=== PATIENT | female | born 1985 | race Caucasian/White ===

== ENCOUNTER → 2017-06-01 | Outpatient (CLI) | payer BC ==
[~2017-06-01] MED LIST: MTR600X PO; PRENTAB26 PO
[2017-06-01 15:49] LABS: URINE APPEARANCE CLEAR (CLEAR); URINE BILIRUBIN NEG (NEG); URINE COLOR DK YELLOW; URINE NITRITE NEG (NEG); URINE SPECIFIC GRAVITY 1.021 (1.000-1.030); UROBILINOGEN NEG (NEG)
[2017-06-01 15:53] LABS: MANUAL MICROSCOPIC REQUIRED? NO; REVIEW REQ? NO
[2017-06-01 17:00] LABS: BASO % 0.2 %; BASO ABS # 0.02 K/uL (0-0.2); COMPLETE YES; EOS % 0.5 %; HEMATOCRIT 38.5 % (37-47); IG% 0.5 %; LYMPH % 20.4 %; LYMPH ABS # 2.05 K/uL (1.2-3.4); MEAN CELL VOLUME 89.5 fL (80-100); MEAN CORPUSCULAR HEMOGLOBIN 29.1 pg (25-34); MEAN CORPUSCULAR HGB CONC 32.5 g/dl (32-36); MEAN PLATELET VOLUME 10.7 fL (7.4-10.4); MONO % 4.5 %; NEUT % 73.9 %; PLATELET COUNT 226 K/uL (130-400); WHITE BLOOD COUNT 10.04 K/uL (4.8-10.8)
[2017-06-04 13:34] LABS: CHLAMYDIA TRACH RNA*** NOT DETECTED (NOT DETECTED); GC (NEIS GONORRHOEAE)RNA** NOT DETECTED (NOT DETECTED)
== END | disposition home or self-care (01) ==
LOC: C.LAB1850 15:15
PROVIDERS: ATTEND Obstetrics & Gynecology
DX: Z34.81 Encounter for supervision of other normal pregnancy, first trimester (principal); Z3A.00 Weeks of gestation of pregnancy not specified

== ENCOUNTER → 2017-07-24 | Outpatient (CLI) | payer BC ==
[2017-07-24 18:46] LABS: GTGD 50 Grams
== END | disposition home or self-care (01) ==
LOC: C.LAB1850 12:43
PROVIDERS: ATTEND Obstetrics & Gynecology
DX: Z34.82 Encounter for supervision of other normal pregnancy, second trimester (principal); Z3A.00 Weeks of gestation of pregnancy not specified

== ENCOUNTER → 2017-10-23 | Outpatient (CLI) | payer BC | END | disposition home or self-care (01) | LOC: C.LABSPEC 13:46 | PROVIDERS: ATTEND Obstetrics & Gynecology | DX: Z34.83 Encounter for supervision of other normal pregnancy, third trimester (principal) ==

== ENCOUNTER → 2017-11-30 | Outpatient (CLI) | payer BC ==
[2017-11-30 17:46] LABS: HEMATOCRIT 33.1 % (37-47); HEMOGLOBIN 11.2 g/dL (12.0-16.0)
== END | disposition home or self-care (01) ==
LOC: C.LAB1850 16:46
PROVIDERS: ATTEND Obstetrics & Gynecology
DX: Z34.83 Encounter for supervision of other normal pregnancy, third trimester (principal)

== ENCOUNTER 2017-12-13 10:16 | Outpatient (CLI) | payer BC ==
[2017-12-13] MEDS ORDERED: TERBUTALINE SULFATE 1 MG/ML VIAL ONE (11:49)
[2017-12-13] MEDS ORDERED: TERBUTALINE SULFATE 1 MG/ML VIAL SQ PRN (12:00)
== END 2017-12-13 14:00 | disposition home or self-care (01) ==
LOC: C.OPB 10:16 → C.LD 10:17 → C.OPB 14:00
PROVIDERS: ATTEND Obstetrics & Gynecology
DX: O32.1XX0 Maternal care for breech presentation, not applicable or unspecified (principal); Z3A.36 36 weeks gestation of pregnancy

== ENCOUNTER → 2017-12-13 | Outpatient (CLI) | payer BC | END | disposition home or self-care (01) | LOC: C.LABSPEC 10:48 | PROVIDERS: ATTEND Obstetrics & Gynecology | DX: Z34.83 Encounter for supervision of other normal pregnancy, third trimester (principal) ==

== ENCOUNTER 2018-01-11 07:43 | Inpatient (IN) | payer BC ==
[~2018-01-11] VITALS: Ht 165.1 cm; Wt 132.3 kg
[2018-01-11] MEDS ORDERED: LACTATED RINGER'S 1000ML 1,000 ML IV PRN (08:26)
[2018-01-11] MEDS ORDERED: LACTATED RINGER'S 1000ML 500 ML IV PRN ×2 (08:26→11:56)
[2018-01-11] MEDS ORDERED: OXYTOCIN 30 UNITS/500ML NSS IV PRN ×2 (08:30→15:45)
[2018-01-11 08:54] LABS: HEMATOCRIT 34.8 % (37-47); HEMOGLOBIN 11.8 g/dL (12.0-16.0); MEAN CELL VOLUME 86.1 fL (80-100); MEAN CORPUSCULAR HEMOGLOBIN 29.2 pg (25-34); MEAN CORPUSCULAR HGB CONC 33.9 g/dl (32-36); MEAN PLATELET VOLUME 10.1 fL (7.4-10.4); PLATELET COUNT 177 K/uL (130-400); RED CELL DISTRIBUTION WIDTH CV 15.1 % (11.5-14.5); RED CELL DISTRIBUTION WIDTH SD 47.7 fL (36.4-46.3); WHITE BLOOD COUNT 9.33 K/uL (4.8-10.8)
[2018-01-11 09:28] VITALS: Ht 165.1 cm; Wt 132.3 kg
[2018-01-11] MEDS ORDERED: FAMO20TA11 PO (09:28)
[2018-01-11] MEDS: LACTATED RINGER'S 1000ML 1,000 ML IV SCH ×2 (09:44→12:36)
[2018-01-11] MEDS ORDERED: BUPIVACAINE 0.25% 30 ML VIAL ONE (11:17)
[2018-01-11] MEDS ORDERED: EpHEDrine SULFATE INJ 50 MG/ML AMP ONE (11:17)
[2018-01-11] MEDS ORDERED: FENTANYL CITRATE INJ 50 MCG/1 ML 2 ML VIAL ONE (11:17)
[2018-01-11] MEDS ORDERED: FENTANYL 2MCG/ML ROPIV 1.25MG/ML 100ML BAG ONE (11:18)
[2018-01-11] MEDS ORDERED: NALOXONE HCL INJ 1 MG in SODIUM CHLORIDE 0.9% 1000ML 1,000 ML IV PRN (11:56)
[2018-01-11] MEDS ORDERED: ONDANSETRON INJ 2 MG/ML 2 ML VIAL IV PRN (12:00)
[2018-01-11] MEDS ORDERED: DiphenhydrAMINE HCL 50 MG/ML VIAL IV PRN (12:00)
[2018-01-11] MEDS ORDERED: NALBUPHINE HCL INJ 10 MG/ML AMP IV PRN (12:00)
[2018-01-11] MEDS ORDERED: NALOXONE HCL INJ 0.4 MG/1 ML VIAL/CARP IV PRN (12:00)
[2018-01-11] MEDS ORDERED: FENTANYL 2MCG/ML ROPIV 1.25MG/ML 100ML BAG EPI PRN (12:00)
[2018-01-11] MEDS ORDERED: EpHEDrine SULFATE INJ 50 MG/ML AMP IV PRN (12:00)
[2018-01-11] MEDS ORDERED: ACETAMINOPHEN/CODEINE 300/30MG TAB PO PRN ×2 (15:45)
[2018-01-11] MEDS ORDERED: ACETAMINOPHEN 325 MG TAB PO PRN (15:45)
[2018-01-11] MEDS ORDERED: BENZOCAINE 20% AER SPR 82.5 GM CAN EXT PRN (15:45)
[2018-01-11] MEDS ORDERED: LANOLIN OINT EXT PRN (15:45)
[2018-01-11] MEDS ORDERED: HYDROCORTISONE ACETATE 25 MG SUPP PR PRN (15:45)
[2018-01-11] MEDS ORDERED: DIPHTHERIA/TETANUS/PERTUSSIS 0.5 ML SYR/VIAL IM. ONE (15:45)
[2018-01-11] MEDS ORDERED: SUPERCREAM 0.870 % 15GM JAR EXT PRN (15:45)
--- NOTE | 2018-01-11 15:54 | DELIVERY SUMMARY ---
DATE OF OPERATION: 01/11/2018 DATE OF DELIVERY: 01/11/2018 FINDINGS: Viable female infant with Apgars of 8 and 9. Baby delivered spontaneously over an intact perineum. Cord gases, cord blood samples obtained. Placenta delivered spontaneously. Estimated blood loss 300 cc. LABOR NOTE: The patient is a 32-year-old 2 para 1 with an EDC of 01/10/2018 at 40+ gestational age who presents to labor and delivery with spontaneous rupture of membranes. The patient states her membranes ruptured approximately 0100 hours on day of admission. The patient states that she has been having mild irregular contractions. The patient has had a benign course. She had successful external cephalic version at 36 weeks gestational age on labor and delivery. Her blood type is O negative, antibody negative, she received RhoGAM on 11/30/2017. She is hepatitic B negative. She declined antigenetic screening and she had a normal 1-hour Glucola at 28 weeks with a negative third trimester beta strip culture. Upon admission the patient was grossly ruptured, 3-4 cm dilated, 50% effaced and -2 station. Tracing was category 1. Because of the ruptured membranes at term the patient was started on Pitocin per induction protocol. The patient progressed into a regular labor pattern. Anesthesia was consulted and an epidural was placed. The patient progressed to full dilatation but had no sensation to push. Her epidural rate was declined to 5 mL per hour and half an hour later she began her second stage. She pushed for approximately 10 minutes delivering a viable female . Cord was clamped and cut. Cord gases and cord blood samples obtained. Placenta delivered spontaneously. Inspection of the perineum showed an intact perineum. Estimated blood loss was 300 cc. Sponge and needle count was correct. I attest to the content of the Intraoperative Record and any orders documented therein. Any exception s are noted below.
--- NOTE | 2018-01-11 16:32 | Anesthesia Procedure Note ---
Anesthesia Epidural Removal Nt Date & Time January 11, 2018 at 16:31 Vital Signs Pain Intensity: 4.0 Notes Mental Status: alert / awake / arousable, participated in evaluation Nausea / Vomiting: adequately controlled Pain: adequately controlled Airway Patency, RR, SpO2: stable & adequate BP & HR: stable & adequate Hydration State: stable & adequate Neuraxial Anesthesia: was administered, sensory block is resolving Anesthetic Complications: no major complications apparent, pt satisfied with anesthetic care Epidural: removed without complications, with tip intact
[2018-01-11] MEDS: IBUPROFEN 600 MG TAB PO PRN ×2 (18:14→23:16)
[2018-01-11 19:25] VITALS: BP 133/85; PULSE 88; TEMP 36.9
[2018-01-11] MEDS: DOCUSATE SODIUM 100 MG CAP PO SCH (20:15)
[2018-01-11] MEDS: FAMOTIDINE 20 MG TAB PO SCH (20:15)
[2018-01-11 23:10] VITALS: BP 121/78; PULSE 87; TEMP 37
[2018-01-12] MEDS: IBUPROFEN 600 MG TAB PO PRN ×2 (03:39→08:55)
[2018-01-12 03:45] VITALS: BP 115/80; PULSE 78; TEMP 36.8
--- NOTE | 2018-01-12 06:32 | Progress Note ---
Subjective January 12, 2018. Subjective conversation w/ patient Ambulation: ambulating normally Voiding: no voiding problems Diet Tolerance: Regular Diet Lochia: Moderate Feeding Type: Breast Feeding Pain: 4/10 cramping abdominal pain, improved with analgesia Review of Systems Constitutional: No fever, No chills Respiratory: No shortness of breath Cardiac: No chest pain Abdomen: No nausea, No vomiting Objective Vital Signs Date Time Temp Pulse Resp B/P (MAP) Pulse Ox O2 Delivery O2 Flow Rate FiO2 01/12/18 03:45 36.8 78 18 115/80 (92) Room Air 01/11/18 23:10 Room Air 01/11/18 23:10 37.0 87 20 121/78 (92) Room Air 01/11/18 19:25 Room Air 01/11/18 19:25 36.9 88 20 133/85 (101) Room Air Physical Exam General Appearance: WELL-APPEARING, WD/WN, NO APPARENT DISTRESS Respiratory/Chest: lungs clear, normal breath sounds Cardiovascular: regular rate, rhythm Abdomen: soft Fundus: Firm, Non-Tender, Relation to Umbilicus (at u) Extremities: no calf tenderness, + pedal edema Laboratory Results Last 24 Hours Test 01/11/18 08:41 01/12/18 04:44 White Blood Count 9.33 K/uL Red Blood Count 4.04 M/uL Hemoglobin 11.8 g/dL Hematocrit 34.8 % Mean Corpuscular Volume 86.1 fL Mean Corpuscular Hemoglobin 29.2 pg Mean Corpuscular Hemoglobin Concent 33.9 g/dl RDW Standard Deviation 47.7 fL RDW Coefficient of Variation 15.1 % Platelet Count 177 K/uL Mean Platelet Volume 10.1 fL Assessment and Plan Post- Day#: 1 Continue Routine Care: 32F s/p NVD day 1 - O-, Rubella Immune, GBS -ve - baby is O+, will require rhogam before d/c - pt doing very well clinically - Vital signs reviewed and WNL - Encourage ambulation, monitor and control pain with Motrin PRN - Encourage breast feeding - Pt ready for d/c today, provided baby is also d/jefry today - will be counselled on discharge instructions Resident Physician Supervision Note: I interviewed and examined the patient. Discussed with Dr. Lau and agree with findings and plan as documented in the note. Any exceptions or clarifications are listed here: Patient desires d/c after 24 hours. Instructions reviewed Documented By: Andrez Glover Resident Tracking Resident Involvement: Resident Care Provided Care Provided: OB Delivery
--- NOTE | 2018-01-12 06:44 | Discharge Instructions ---
Discharge Instructions Date of Service January 12, 2018. Admission Reason for Admission: Labor Check Discharge Discharge Diagnosis / Problem: Vaginal Delivery Discharge Goals Goal(s): Routine recovery after delivery Medications Continue Dispensed Medications: supercream, dermaplast, tucks, lansinoh Activity Recommendations Activity Limitations: per Instructions/Follow-up section . Instructions / Follow-Up Instructions / Follow-Up ACTIVITY RECOMMENDATIONS: * Gradual return to full activity over the next 2-3 weeks. * No lifting - nothing heavier than baby over the next 2-3 weeks. * Do not engage in vigorous exercise, sexual activity or sports until cleared by your physician. * Do not drive or operate any motorized equipment until cleared by your physician. * You may shower/bathe daily. MEDICATIONS: For discomfort or pain, you may use Acetaminophen (Tylenol), Ibuprofen (Advil), or Naproxen (Aleve) following the package directions. For constipation you may use Colace following the package directions. BREAST CARE: If you are not breast feeding: * Wear a supportive bra 24 hours a day for one to two weeks. * Avoid stimulating your breasts and nipples as much as possible during the first few weeks after delivery. * When taking a shower, have the warm water hit your back, not breasts. * When your breasts feel full, apply ice packs. Usually three to four times a day helps ease the discomfort. * Take a mild pain medication (Tylenol / Motrin) when you are uncomfortable. If breast feeding: * Use breast milk to lubricate nipples. Lansinoh cream may be used for sore nipples. You do not need to remove cream prior to breast feeding. If using a different brand of cream, check the label for directions regarding removal of cream prior to nursing. * Wear a supportive bra. * If having problems with breasts or breast feeding, call a applications consultant or your health care provider. EPISIOTOMY CARE: After delivery, if you have an episiotomy (stitches), the following steps will ease discomfort and aid healing. * For the first 24 hours after delivery, place ice packs next to your episiotomy to help reduce swelling. * After the first 24 hour-period, sitz baths, either portable or in the tub, are suggested. A shower with a shower arm sprayed over the episiotomy may be comforting. * Tori care should be done after each voiding and bowel movement. Squirt warm water from a plastic bottle over the perineum (region of the body between the anus and urinary opening) and pat dry. * Use Dermoplast to ease discomfort. Shake container. Kinross directly over the episiotomy. Place a Tucks on a clean sanitary pad next to your episiotomy. SPECIAL CARE INSTRUCTIONS: When you are discharged from the hospital, it is important for you to follow the instructions listed below: * During the first week at home, you should be able to care for yourself and your baby. In addition, the usual light household activities are encouraged. * Limit your activities to the way you feel. Do not try to clean the house or move furniture. Be sensible. * If you actively engage in sports and have done so up until the time of your delivery, you may resume these activities as soon as you feel able. This may take up to one month or even longer. Use good judgment. * Continue to take your vitamins for at least six weeks after the of your baby. * Your diet need not be limited unless you were on a special diet before your delivery. Breast-feeding mothers need around 2500 calories per day and at least 64-80 ounces of fluid per day (8 to 10 glasses). * You should eat foods from the four major food groups. Crash diets or fad diets are to be avoided. Eating lean meats, fresh fruits and vegetables, low-fat dairy products, high fiber foods and a regular exercise program, will help you get back to your pre- weight without putting your health at risk. * Constipation is sometimes a problem after delivery. Take a mild laxative as needed. If breast feeding, Milk of Magnesia is acceptable to use. You may use a suppository or Fleets enema if no episiotomy. * A daily shower or tub bath is suggested. Be sure to thoroughly and gently dry the perineum. * A bloody vaginal discharge will usually continue until around four weeks post . A small amount of bleeding may continue for as long as six weeks. Vaginal discharge changes from the bright red bleeding after delivery to pink then brownish and finally yellowish-pink before becoming white and disappearing. * Bleeding may increase with activity. Your first period may come in 4-8 weeks. If you are breast feeding, your period may be delayed even longer. * Denhoff (sex) can begin whenever both you and your partner feel comfortable and do not have any form of genital infection. It is recommended that you wait at least six weeks for internal and external healing to occur. If you have questions, please talk to your health care practitioner. A condom should be used to prevent infection and . * Foreplay, gentle intercourse and lubrication is very important the first several times to prevent pain. A water-based lubricant such as K-Y jelly or Astroglide may be used. * If you have RH negative blood and your baby is RH positive, you will receive RHOGAM by injection prior to discharge. The nurse will give you a card to keep with you that has the date and place that you received RHOGAM after delivery. * During your care, you had a Rubella screen done to check for the presence of rubella antibodies in your blood. If your test was negative, you will receive a Rubella vaccine prior to discharge. This vaccine may cause a fever, soreness at the injection site and flu-like symptoms. If these symptoms persist, notify your health care practitioner. is not advised for one month after a Rubella vaccine. * Verbalizes understanding of car seat law as reviewed with patient nursing. * Car Seat hand-out given and reviewed with patient by nursing. * Shaken baby information reviewed with patient by nursing. Call you doctor if: * Heavy bleeding (saturating several pads an hour) or passing clots the size of your fist. * A fever >101 degrees F (38.3 degrees C) on two occasions four hours apart and /or chills. * Unusual pain in the pelvic or vaginal areas. * "Baby Blues" lasting longer than two weeks. If you have any questions or concerns, call your health care practitioner at . FOLLOW UP VISIT: * Please call the office at to schedule a 6 week examination. It is important you keep this appointment. It is important for you to make arrangements for either yearly or twice yearly check-ups thereafter. Current Hospital Diet Patient's current hospital diet: Regular OB Diet Discharge Diet Recommended Diet: Regular Diet Pending Studies Studies pending at discharge: no Medical Emergencies . Who to Call and When: Medical Emergencies: If at any time you feel your situation is an emergency, please call 911 immediately. . Non-Emergent Contact Non-Emergency issues call your: Primary Care Provider . . "Provider Documentation" section prepared by Vianey Lau. .
[2018-01-12] MEDS ORDERED: FERROUS SULFATE 325 MG TAB PO SCH (08:00)
[2018-01-12] MEDS ORDERED: PRENATAL VITAMIN TAB PO SCH (08:00)
[2018-01-12 08:35] VITALS: BP 121/83; PULSE 84; TEMP 37; O2SAT 98
[2018-01-12] MEDS: DOCUSATE SODIUM 100 MG CAP PO SCH (08:35)
[2018-01-12] MEDS: FAMOTIDINE 20 MG TAB PO SCH (08:35)
[2018-01-12 08:36] LABS: HEMATOCRIT 34.7 % (37-47); HEMOGLOBIN 11.6 g/dL (12.0-16.0)
[2018-01-12 12:35] VITALS: BP 115/77; PULSE 72; TEMP 36.8; O2SAT 97
[2018-01-12 15:05] VITALS: BP 137/84; PULSE 80; TEMP 36.5; O2SAT 98
[2018-01-12 16:15] VITALS: BP_DIAS 84; PULSE 80; TEMP 36.5
[2018-01-12] MEDS ORDERED: BISACODYL 5 MG TABEC PO SCH (20:00)
== END 2018-01-12 18:50 | disposition home or self-care (01) | DRG 775 ==
LOC: C.OPB 07:43 → C.LD 07:43 → C.OPB 08:32 → C.LD 08:33 → C.OBG 19:32
PROVIDERS: ADMIT Obstetrics & Gynecology; ATTEND Obstetrics & Gynecology
PROC: 10E0XZZ Delivery of Products of Conception, External Approach (ICD-10-PCS; principal; 2018-01-11)
DX: O42.02 Full-term premature rupture of membranes, onset of labor within 24 hours of rupture (principal); Z37.0 Single live birth; Z3A.40 40 weeks gestation of pregnancy

== ENCOUNTER 2021-12-23 00:59 | Inpatient (IN) ==
[2021-12-23] MEDS ORDERED: OXYTOCIN 30 UNITS/500 ML BAG IV PRN ×3 (02:32→12:25)
--- NOTE | 2021-12-23 02:38 | History & Physical Report ---
Date of Service December 23, 2021 Assessment & Plan (1) SROM (spontaneous rupture of membranes): Plan: 36 y/o at 39 wga presents after srom VSS Fetus cat 1 Labor - not yet been checked till today, notes ctx getting stronger. Will allow expectant management, if no progress in few hours will start pit and pt amenable GBS neg epidural PRN History of Present Illness Chief Complaint: SROM Primary Care Provider: NO PCP 36 y/o at 39 wga presents w/ c/o LOF around midnight. +FM and ctx since then, denies VB. Had big gush and trickled, another big gush afterward PNI: AMA BMI 56 Rh neg Past LABORER DEMOLITION Hx: G1 2015 at 38 wks G2 2018 at 40 wks G3 SAB G4 current q21-24d cycles 05/2020 neg cyto Allergies Allergy/AdvReac Type Severity Reaction Status Date / Time birch Allergy Mild SEASONAL Verified 12/16/21 13:26 ALLERGIES metoclopramide AdvReac Intermediate VOMITING Verified 12/23/21 01:38 Home Medications Medication Instructions Recorded Confirmed Type prenat.vits,judith,[id number] 1 tab PO DAILY 11/10/20 12/23/21 History Patient History Medical History (Updated 12/23/21 @ 02:38 by Saranya Bradshaw MD) Abdominal pain intermittent Diarrhea Diarrhea Encounter for pre-operative examination Epigastric abdominal pain Gastroparesis GERD (gastroesophageal reflux disease) Hiatal hernia IBS (irritable bowel syndrome) Missed PCOS (polycystic ovarian syndrome) Surgical History (Updated 12/23/21 @ 01:38 by Gracy Lambert RN) H/O lateral meniscus repair of right knee History of carpal tunnel surgery History of colonoscopy w/ polypectomy History of esophagogastroduodenoscopy (EGD) History of wisdom tooth extraction Nausea and vomiting after administration of anesthetic agent Family History Mother Family history of reaction to anesthesia PONV Breast cancer Social History (Updated 05/25/21 @ 10:52 by Sydnee Yoder) Smoking Status: Never smoker Second Hand Exposure: No; Hx Alcohol Use: No Hx Substance Use: No Preferred Language: Romanian Communication Ability: Effective Pulp Mixer Required: No Beliefs That Will Affect Care: None marital status: marital status details: Kiet (34) [phone] Current Living Situation: Spouse Current Living Situation Comment: lives with spouse and 2 children, no pets. 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, nursing clerk Other Information That Helps Us Care for You: No Feels Safe at Home: Yes Safety Concerns: Feels Safe At This Time Assistive Devices: Contacts and Glasses Physical Exam Genitourinary: OB Exam Abdomen: + vertex (confirmed by BSUS) and + estimated weight (8) Manual OB Exam: + cervical dilation (1.5), + cervical effacement 50%, + station -2 and + amniotic fluid (+pooling) clear and nitrazine positive OB Exam Monitor Tracing: + external FHT monitor used, + external uterine monitor used (5) and + category I (140/mod/+accel/-decel) Results & Data ([facility]) Vital Signs (Past 12 Hours) Vital Signs Temp Pulse Resp BP 12/23/21 01:41 93 H 125/72 12/23/21 01:39 98.4 F 18 Laboratory Results OB Labs: Blood Type O Negative 12/19/20 Antibody Screen POSITIVE A 12/19/20 Hemoglobin 11.7 g/dL (12.0-16.0) L 10/06/21 Hematocrit 36.1 % (37-47) L 10/06/21 Mean Corpuscular Volume 85.6 fL (80.0-100.0) 06/02/21 Platelet Count 194 Thousand/uL (140-400) 06/02/21 Rubella IgG Antibody 2.02 Index 06/02/21 Rapid Plasma Reagin NONREACTIVE (NONREACT) 06/01/17 Hepatitis B Surface Antigen NEG (NEG) 06/01/17 HIV (1&2) Ab and P24 Ag, 4th Gener NON-REACTIVE (NON-REACTIVE) 06/02/21 Glucose 1 Hour 50 gm Load 116 mg/dl (70-130) 10/06/21 OB Optional Labs: Chlamydia trachomatis RNA NOT DETECTED (NOT DETECTED) 06/01/21 Neisseria gonorrhoeae RNA NOT DETECTED (NOT DETECTED) 06/01/21 Labs Reviewed: 06/02/21 Blood Type-O Negative Antibody screen-Negative declines cfDNA, quad, msafp declines cf/sma Diagnostic Findings posterior plac Coding Level of Care Code None Diagnoses SROM (spontaneous rupture of membranes)
[2021-12-23] MEDS: LACTATED RINGER'S 1,000 ML IV PRN ×3 (02:40→10:33)
[2021-12-23 04:35] LABS: Hematocrit (blood only) 36.3 % (37-47); Hemoglobin 12.1 g/dL (12.0-16.0); Mean Corpuscular Hemoglobin 29.7 pg (25-34); Mean Corpuscular Volume 89.2 fL (80-100); Mean Platelet Volume 11.6 fL (7.4-10.4); Platelet Count 201 K/uL (130-400); RDW Coefficient of Variation 15.5 % (11.5-14.5); RDW Standard Deviation 50.4 fL (36.4-46.3); Red Blood Count 4.07 M/uL (4.2-5.4); White Blood Count 8.26 K/uL (4.8-10.8)
[2021-12-23 05:03] LABS: Mean Corpuscular Hgb Conc 33.3 g/dL (32-36)
[2021-12-23] MEDS ORDERED: BUPIVACAINE 0.25% 30 ML VIAL ONE (10:19)
[2021-12-23] MEDS ORDERED: fentaNYL 2MCG/ML ROPIVACAINE 1.25MG/ML 100 ML BAG EPI ONE (10:19)
[2021-12-23] MEDS ORDERED: ePHEDrine sulfate 50 MG/ML AMP ONE (10:19)
[2021-12-23] MEDS ORDERED: SODIUM CHLORIDE 0.9% INJ 10 ML VIAL ONE (10:19)
[2021-12-23] MEDS ORDERED: fentaNYL citrate 100 MCG/2 ML VIAL ONE (10:19)
[2021-12-23] MEDS ORDERED: NALOXONE HCL 0.4 MG/1 ML VIAL/CARP IV PRN (10:44)
[2021-12-23] MEDS ORDERED: diphenhydrAMINE 50 MG/ML VIAL IV PRN (10:44)
[2021-12-23] MEDS ORDERED: ONDANSETRON INJ 2 MG/ML 2 ML VIAL IV PRN (10:44)
[2021-12-23] MEDS ORDERED: NALOXONE HCL 1 MG in SODIUM CHLORIDE 0.9% 1000ML 1,000 ML IV PRN (10:44)
[2021-12-23] MEDS ORDERED: NALBUPHINE HCL INJ 10 MG/ML AMP IV PRN (10:44)
[2021-12-23] MEDS ORDERED: ePHEDrine sulfate 50 MG/ML AMP IV PRN (10:44)
[2021-12-23] MEDS ORDERED: fentaNYL 2MCG/ML ROPIVACAINE 1.25MG/ML 100 ML BAG EPI PRN (10:44)
--- NOTE | 2021-12-23 10:50 | Anesthesiology Consultation ---
Date of Service December 23, 2021 Assessment & Plan Chart Review Chart Review: Acceptable Risk for Surgery and Patient NOT seen in Pre Admission Testing Consults Requested none ASA ASA3 Proposed Anesthesia Anesthesia Type: Labor Epidural and CSE Risk / Benefits Reviewed With: PT / POA / Parent / Guardian, Accepts Plan and Informed Consent Obtained History Height/Weight Height: 5 ft 4 in Weight: 147.871 kg Allergies Allergy/AdvReac Type Severity Reaction Status Date / Time birch Allergy Mild SEASONAL Verified 12/16/21 13:26 ALLERGIES metoclopramide AdvReac Intermediate VOMITING Verified 12/23/21 01:38 Medications Home Medications Medication Instructions Recorded Confirmed Last Taken prenat.vits,judith,[id number] 1 tab PO DAILY 11/10/20 12/23/21 12/22/21 Active Medications Generic Name Dose Route Start Last Admin Trade Name Freq PRN Reason Stop Dose Admin Lactated Ringer's 1,000 mls @ 125 mls/hr 12/23/21 02:32 12/23/21 10:44 Lr IV 12/25/21 02:31 125 mls/hr .Q8H PRN Infusion L&D Protocol Protocol Oxytocin 30 units in 500 mls @ 6 mls/hr 12/23/21 02:39 12/23/21 09:50 Pitocin IV 12/25/21 02:38 0.36 units/hr .Q24H PRN 6 mls/hr Labor Induction/Augmentation Titration Protocol 0.36 UNITS/HR NPO Date Last Intake of Fluids: 12/23/21 Time Last Intake of Fluids: 09:00 Date Last Intake of Solids: 12/22/21 Time Last Intake of Solids: 19:00 Past Medical History Medical History Epigastric abdominal pain Gastroparesis GERD (gastroesophageal reflux disease) Hiatal hernia IBS (irritable bowel syndrome) Morbid obesity PCOS (polycystic ovarian syndrome) Exercise / Class Metabolic Activity II 4-5 Yardwork/Stairs/Walk up hill Past Family History Family History Mother Family history of reaction to anesthesia PONV Breast cancer Past Surgical History Surgical History H/O lateral meniscus repair of right knee History of carpal tunnel surgery History of colonoscopy w/ polypectomy History of esophagogastroduodenoscopy (EGD) History of wisdom tooth extraction Nausea and vomiting after administration of anesthetic agent Past Anesthesia History No Hx of Anesthesia Complications and No Family Hx of Anesthesia Complications History of PONV No Hx of PONV and No Hx of Motion Sickness Social History Smoking Status: Never smoker Hx Alcohol Use: No alcohol intake frequency: holidays/special occasions only Hx Substance Use: No substance use type: does not use Physical Exam Vital Signs Last Vital Signs Temp 36.5 C 12/23/21 09:15 Pulse 99 H 12/23/21 10:42 Resp 20 12/23/21 10:00 BP 134/76 12/23/21 09:17 Pulse Ox 99 12/23/21 10:42 Testing Laboratory Results 12/23/21 04:04 Blood Type Cancelled 12/23/21 02:54 Blood Type O Negative 12/23/21 02:54 Rho(D) Type Cancelled 12/23/21 02:54 Antibody Screen Cancelled 12/23/21 02:54 Antibody Screen NEGATIVE 12/23/21 02:54
--- NOTE | 2021-12-23 12:10 | Delivery Summary ---
Vaginal Delivery Summary Date of Service December 23, 2021 Vaginal Delivery Summary Spontaneous vaginal delivery patient was admitted by the previous on-call physician overnight Pitocin was started after rupture of membranes she initially had some variable D cells after epidural but then rapidly progressed from 6 cm to fully dilated she pushed over only 1 contraction delivering a baby with clear fluid in occiput anterior position with gentle traction on the baby no excessive force no nuchal cord live vigorous female infant cord clamped and cut cord gases obtained cord blood obtained placenta removed with traction IV Pitocin was started there was no tearing blood loss was 100 mL sponge and instrument counts correct
[2021-12-23] MEDS ORDERED: DIPHTHERIA/TETANUS/PERTUSSIS 0.5 ML SYR/VIAL IM ONE (12:25)
[2021-12-23] MEDS ORDERED: oxyCODONE/ACETAMINOPHEN 5mg/325mg TAB PO PRN (12:25)
[2021-12-23] MEDS ORDERED: ACETAMINOPHEN 325 MG TAB PO PRN (12:25)
[2021-12-23] MEDS ORDERED: bisacodyL 10 MG SUPP PR PRN (12:25)
[2021-12-23] MEDS ORDERED: BENZOCAINE 20% AER SPR 82.5 GM CAN EXT PRN (12:25)
[2021-12-23] MEDS ORDERED: HYDROCORTISONE ACETATE 25 MG SUPP PR PRN (12:25)
[2021-12-23 13:09] LABS: Base Excess Cord Venous Blood -2.5 mEq/L (-7.7-1.9); Cord Venous Blood HCO3 25 mmol/L (18.4-26.8); Cord Venous Blood PCO2 50 mmHg (30.4-57.2); Cord Venous Blood PO2 24 mmHg (14.1-43.3); Cord Venous Blood pH 7.31 (7.20-7.44)
[2021-12-23 13:23] LABS: Base Excess Cord Arterial Bld -3.2 mEq/L (-9-1.8); CO2 Cord Arterial Blood 62 mmHg (39.1-73.5); HCO3 Cord Arterial Blood 26 mmol/L (19.7-28.5); PO2 Cord Arterial Blood 19 mmHg (4.1-31.7); pH Cord Arterial Blood 7.24 (7.1-7.38)
--- NOTE | 2021-12-23 13:24 | Anesthesia Procedure Note ---
Date of Service December 23, 2021 Anesthesia Post Epidural Note Vital Signs Vital Signs: Temp Pulse Resp BP Pulse Ox 36.7 C 90 18 129/81 93 12/23/21 12:12 12/23/21 13:12 12/23/21 12:57 12/23/21 13:12 12/23/21 12:04 Notes Mental Status: alert / awake / arousable and participated in evaluation Nausea / Vomiting: adequately controlled Pain: adequately controlled Airway Patency, RR, SpO2: stable & adequate BP & HR: stable & adequate Hydration State: stable & adequate Neuraxial Anesthesia: was administered and sensory block is resolving Anesthetic Complications: no major complications apparent and Pt Satisfied with anesthetic care Epidural: Removed without complications and With tip intact
[2021-12-23 13:33] LABS: Oxygen Sat Cord Arterial Blood < 60.0 % (<60)
[2021-12-23 13:34] LABS: O2 Saturation Cord Venous Bld < 60.0 % (<68)
[2021-12-23] MEDS: IBUPROFEN 600 MG TAB PO PRN ×2 (18:38→22:45)
[2021-12-23] MEDS: DOCUSATE SODIUM 100 MG CAP PO SCH (21:33)
--- NOTE | 2021-12-24 07:38 | Obstetrical Progress Note ---
Date of Service December 24, 2021 Assessment & Plan (1) SROM (spontaneous rupture of membranes): day #1 from uncomplicated vaginal delivery this is not her first baby and she wishes to go home later today we discussed that as long as pediatric cleared the baby this would be reasonable she is having no heavy bleeding no extremity pain she has no depression Subjective Ambulation: ambulating normally Voiding: no voiding problems Passing Gas:: Yes Diet Tolerance:: regular diet Results & Data ([facility]) Vital Signs (Past 12 Hours) Vital Signs Temp Pulse Resp BP Pulse Ox 12/24/21 03:20 97.5 F L 86 20 120/81 97 12/23/21 23:20 98.1 F 84 18 136/69 98 12/23/21 20:20 98.1 F 88 20 125/85 97
[2021-12-24] MEDS: DOCUSATE SODIUM 100 MG CAP PO SCH (07:58)
[2021-12-24] MEDS ORDERED: PRENATAL VITAMIN 1 TAB PO SCH (08:00)
[2021-12-24] MEDS ORDERED: bisacodyL 5 MG TABEC PO SCH (20:00)
== END 2021-12-24 13:10 | disposition home or self-care (01) | DRG 807 ==
LOC: OPB 00:59 → 4S1 01:06 → 4E2 15:30